=== PATIENT | male | born 1985 | race Caucasian/White ===

== ENCOUNTER 2024-06-08 12:05 | Emergency (ER) | payer OTHER ==
[2024-06-08 12:23] VITALS: RESP 18; TEMP 98.3; BMI 56.0
[2024-06-08 13:05] VITALS: BP 172/94
[2024-06-08 13:06] VITALS: PULSE 91
== END 2024-06-08 13:07 | disposition home or self-care (01) ==
LOC: JERFT 12:05
DX: L02.213 Cutaneous abscess of chest wall (principal)
CPT/HCPCS: 87070; 87077; 87186; 87205; 99283-25

== ENCOUNTER 2024-06-19 05:13 | Emergency (ER) | payer OTHER ==
[2024-06-19 05:22] VITALS: BP 187/95; PULSE 98; RESP 18; TEMP 99; BMI 56.0
[2024-06-19] MEDS ORDERED: ACETAMINOPHEN 325 MG TABLET (FP) ONE (05:59)
[2024-06-19] MEDS: ACETAMINOPHEN 500 MG TABLET (FP) PO ONE (06:08)
== END 2024-06-19 06:12 | disposition home or self-care (01) ==
LOC: JER 05:13
DX: R07.89 Other chest pain (principal); R50.9 Fever, unspecified; Z20.822 Contact with and (suspected) exposure to COVID-19
CPT/HCPCS: 0241U-QW; 99283-25